=== PATIENT | female | born 1955 | race Caucasian/White ===

== ENCOUNTER 2017-12-29 07:56 | Day surgery (SDC) | payer BC ==
[~2017-12-29 07:56] MED LIST: LIDOCAINE HCL 1% MPF SOL ONE; PROPOFOL 500 MG/50 ML EMU IV ONE
[2017-12-29 10:02] VITALS: BP 118/74; PULSE 60; RESP 20; TEMP 97.4; O2SAT 99
== END 2017-12-29 10:30 | disposition home or self-care (01) ==
LOC: SURG 07:56
PROVIDERS: ATTEND Surgery
DX: Z12.11 Encounter for screening for malignant neoplasm of colon (principal); Z86.010 Personal history of colon polyps; D12.2 Benign neoplasm of ascending colon; D12.5 Benign neoplasm of sigmoid colon
CPT/HCPCS: 99001; J2001; J2704